=== PATIENT | male | born 1950 | race Caucasian/White ===

== ENCOUNTER 2016-11-28 13:58 | Emergency (ER) | payer MEDICARE ==
[~2016-11-28] VITALS: Ht 177.8 cm; Wt 82.2 kg
[2016-11-28] MEDS ORDERED: MORPHINE SULFATE 4 MG/ML, 1ML ONE ×3 (14:18→15:24)
[2016-11-28] MEDS ORDERED: ONDANSETRON 2MG/ML, 2ML ONE (14:18)
[2016-11-28] MEDS: MORPHINE SULFATE 4 MG/ML, 1ML IVPush PRN ×2 (14:22→14:41)
[2016-11-28] MEDS ORDERED: ONDANSETRON 2MG/ML, 2ML IVPush ONE (14:30)
[2016-11-28] MEDS ORDERED: SODIUM CHLORIDE FLUSH 10ML SYR IVF ONE (14:30)
[2016-11-28] MEDS ORDERED: OMEP10CA4 PO (14:47)
[2016-11-28] MEDS ORDERED: SOLI10TA PO (14:47)
[2016-11-28] MEDS ORDERED: DOXA4TAB PO (14:47)
[2016-11-28] MEDS ORDERED: CHOL10002 PO (14:47)
[2016-11-28] MEDS ORDERED: FOLI-17 PO (14:47)
[2016-11-28] MEDS ORDERED: METH2.5T PO (14:47)
[2016-11-28] MEDS ORDERED: VALS320T2 PO (14:47)
[2016-11-28] MEDS ORDERED: MORPHINE SULFATE 4 MG/ML, 1ML IVPush PRN (15:30)
[2016-11-28] MEDS: PROPOFOL 10 MG/ML, 20ML IVPush ONE (16:00)
[2016-11-28 17:15] VITALS: BP 139/87
== END 2016-11-28 17:20 | disposition home or self-care (01) ==
LOC: ED 17:14
DX: S43.005A Unspecified dislocation of left shoulder joint, initial encounter (principal); W18.30XA Fall on same level, unspecified, initial encounter; Y93.89 Activity, other specified; Y92.410 Unspecified street and highway as the place of occurrence of the external cause; Y99.9 Unspecified external cause status
CPT/HCPCS: 23650; 73030; 96361; 96374; 96375; 99152; 99153; 99285; J2405